=== PATIENT | male | born 1995 | race Two or more races ===

== ENCOUNTER → 2017-11-15 | Outpatient (CLI) | payer BC ==
[~2017-11-15] MED LIST: ALUM35SO4 TP
[2017-11-15 08:42] LABS: PLATELET COUNT, AUTOMATED 220 K/uL (150-450)
== END ==
LOC: LAB 08:20
PROVIDERS: ATTEND Internal Medicine
DX: R61 Generalized hyperhidrosis (principal)
CPT/HCPCS: 36415; 82040; 82247; 82310; 82374; 82435; 82565; 82947; 84075; 84132; 84155; 84295; 84439; 84443; 84450; 84460; 84520; 85025